=== PATIENT | male | born 1955 | race Caucasian/White ===

== ENCOUNTER 2020-07-25 13:40 | Emergency (ER) | payer BC, MEDICARE ==
[~2020-07-25] VITALS: Ht 182.9 cm; Wt 88.6 kg
[2020-07-25] MEDS ORDERED: LIDOCAINE 2% 5ML JELLY UROJET TOP ONE (14:40)
--- NOTE | 2020-07-25 16:52 | REP ---
INDICATION: pain over bladder, clot with echols insertion. COMPARISON: None. TECHNIQUE: Real-time sonographic evaluation of urinary bladder performed. FINDINGS: The bladder measures 14.4 x 9.4 x 10.8 cm for total volume of 955 cc. The Echols balloon is seen within the bladder lumen. No bladder mass is seen. No thrombus is seen within the bladder lumen. The prostate is enlarged, measuring 6.5 x 6.3 x 8.4 cm, total volume 179 cc. Ureteral jets could not be seen in the urinary bladder with Doppler color evaluation. After unclamping the Echols catheter post drain residual fluid in the bladder is 27 cc. IMPRESSION: Echols catheter balloon is within the bladder lumen. No bladder mass or intraluminal thrombus is seen. Prostate is significantly enlarged. <Electronically signed by Kyler Sands > 07/25/20 [id number]
[2020-07-25 17:54] VITALS: BP 128/88
== END 2020-07-25 18:43 | disposition home or self-care (01) ==
LOC: M ED 13:40
DX: N40.1 Benign prostatic hyperplasia with lower urinary tract symptoms (principal); F17.200 Nicotine dependence, unspecified, uncomplicated

== ENCOUNTER → 2020-08-01 | Outpatient (CLI) | payer BC, MEDICARE ==
[2020-08-01 14:28] LABS: BLOOD UREA NITROGEN 13 MG/DL (7-18); CALCIUM LEVEL 9.3 MG/DL (8.8-10.2); CARBON DIOXIDE LEVEL 29 MEQ/L (21-32); CHLORIDE LEVEL 106 MEQ/L (98-107); CREATININE FOR GFR 0.84 MG/DL (0.70-1.30); GLOMERULAR FILTRATION RATE > 60.0 (>49); GLUCOSE, FASTING 116 MG/DL (70-100); POTASSIUM SERUM 4.6 MEQ/L (3.5-5.1); SODIUM LEVEL 140 MEQ/L (136-145)
== END ==
LOC: M PLALAB 09:38
PROVIDERS: ATTEND Nurse Practitioner Family
DX: Z12.5 Encounter for screening for malignant neoplasm of prostate (principal); R31.0 Gross hematuria

== ENCOUNTER → 2020-08-13 | Outpatient (REF) | payer MEDICARE ==
[2020-08-14 23:07] LABS: PSA % FREE 11.4 % (.); PSA FREE 1.13 ng/mL; PSA TOTAL 9.9 ng/mL (0.0-4.0)
== END ==
LOC: M PLALAB 09:28
PROVIDERS: ATTEND Urology
DX: R97.20 Elevated prostate specific antigen [PSA] (principal)

== ENCOUNTER → 2020-08-19 | Outpatient (CLI) | payer BC, MEDICARE ==
[~2020-08-19] MED LIST: ISOVUE-370 76% 100ML VIAL As Ordered ONE
--- NOTE | 2020-08-19 10:56 | REP ---
INDICATION: GROSS HEMATURIA. COMPARISON: Bladder ultrasound 07/25/2020. TECHNIQUE: CT abdomen and pelvis performed without IV contrast. CT abdomen and pelvis performed with IV contrast as well, following intravenous administration of 100 cc of Isovue 370. Sagittal, coronal and 3D MIP reconstruction images are performed. FINDINGS: Lung bases: Unremarkable. Liver: Normal Gallbladder: Unremarkable. Spleen: Normal. Adrenals: Normal. Pancreas: There is a solid enhancing mass in the tail of the pancreas 2.3 cm in diameter. There is no pancreatic duct dilatation. Kidneys: No renal stones are seen. 2 prominent cysts are seen of the lower pole of the right kidney, the larger measures 6.4 cm in diameter. There is a 9 mm cyst in the mid left kidney. Small and large bowel: There are few sigmoid diverticula present without acute diverticulitis. Free fluid: None. Adenopathy: None. There is mild ectasia of the distal abdominal aorta 2.4 cm in maximum AP diameter. Appendix: Not inflamed. Osseous structures: There are degenerative changes of the spine without compression deformity. Pelvis: The prostate is markedly enlarged. The bladder wall appears mildly thickened diffusely. There is a small umbilical hernia containing noninflamed fat. IMPRESSION: There is a solid enhancing mass in the tail the pancreas 2.3 cm in diameter. Bilateral renal cysts without other significant renal abnormality. Prostate is markedly enlarged. Bladder wall appears mildly thickened diffusely. <Electronically signed by Kyler Sands > 08/19/20 [id number]
== END ==
LOC: M RAD 08:48
PROVIDERS: ATTEND Nurse Practitioner Family
DX: R31.0 Gross hematuria (principal); N28.1 Cyst of kidney, acquired; K86.89 Other specified diseases of pancreas
CPT/HCPCS: 74178; Q9967

== ENCOUNTER → 2020-09-16 | Outpatient (CLI) | payer MEDICARE ==
[2020-09-17 23:07] LABS: PSA % FREE 16.4 % (.); PSA FREE 1.39 ng/mL; PSA TOTAL 8.5 ng/mL (0.0-4.0)
== END ==
LOC: M PLALAB 09:33
PROVIDERS: ATTEND Urology
DX: R97.20 Elevated prostate specific antigen [PSA] (principal)

== ENCOUNTER → 2020-09-24 | Outpatient (CLI) | payer MEDICARE ==
--- NOTE | 2020-09-24 11:31 | REPPI ---
INDICATION: ELEVATED PSA. COMPARISON: None. TECHNIQUE: Transrectal prostate sonography. Ultrasound guidance for TRUS biopsy. FINDINGS: Trans rectal prostate sonography demonstrates unremarkable seminal vesicles. Prostate gland is heterogeneous, with calcifications and cystic changes noted. Glandular dimensions are measured at 6.1 x 5.1 x 6.4 cm with a calculated glandular volume of 103 ml. There is a 1.0 cm hypoechoic nodule in the left mid lateral gland. Transrectal sonographic guidance is provided to Dr. Cueva who performed trans rectal ultrasound guided needle biopsy procedure. IMPRESSION: Transrectal prostate sonographic findings as above. <Electronically signed by Rigo Bragg > 09/24/20 [id number]
== END ==
LOC: M PLAIMG 08:37
PROVIDERS: ATTEND Urology
DX: R97.20 Elevated prostate specific antigen [PSA] (principal)

== ENCOUNTER → 2021-10-06 | Outpatient (CLI) | payer MEDICARE ==
[2021-10-07 23:07] LABS: PSA TOTAL 3.7 ng/mL (0.0-4.0)
== END ==
LOC: M PLALAB 09:03
PROVIDERS: ATTEND Urology
DX: R97.20 Elevated prostate specific antigen [PSA] (principal)

== ENCOUNTER → 2022-03-30 | Outpatient (CLI) | payer MEDICARE ==
[2022-03-31 23:20] LABS: PSA TOTAL 3.1 ng/mL (0.0-4.0)
== END ==
LOC: M PLALAB 09:13
PROVIDERS: ATTEND Urology
DX: R97.20 Elevated prostate specific antigen [PSA] (principal)

== ENCOUNTER → 2022-10-19 | Outpatient (CLI) | payer MEDICARE ==
[2022-10-20 14:10] LABS: PSA TOTAL 3.9 ng/mL (0.0-4.0)
== END ==
LOC: M PLALAB 07:54
PROVIDERS: ATTEND Urology
DX: R97.20 Elevated prostate specific antigen [PSA] (principal)

== ENCOUNTER → 2023-04-14 | Outpatient (CLI) | payer MEDICARE ==
[2023-04-15 23:07] LABS: PSA TOTAL 3.4 ng/mL (0.0-4.0)
== END ==
LOC: M PLALAB 08:18
PROVIDERS: ATTEND Urology
DX: R97.20 Elevated prostate specific antigen [PSA] (principal)

== ENCOUNTER → 2024-06-19 | Outpatient (CLI) | payer MEDICARE | LOC: M PLALAB 13:13 | PROVIDERS: ATTEND Urology | DX: Z87.898 Personal history of other specified conditions (principal); R97.20 Elevated prostate specific antigen [PSA] ==